=== PATIENT | male | born 1960 | race American Indian/Alaskan Native ===

== ENCOUNTER 2019-01-09 11:23 | Emergency (ER) | payer OTHER ==
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
[2019-01-09] MEDS ORDERED: BOOSTRIX IM ONE (11:39)
[2019-01-09] MEDS ORDERED: IBUPROFEN PO ONE (12:30)
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
[2019-01-09] MEDS ORDERED: CATAPRES PO ONE (13:27)
[2019-01-09] MEDS ORDERED: PERCOCET 5/325 PO ONE (13:29)
[2019-01-09 15:10] VITALS: BP 147/84
== END 2019-01-09 15:11 | disposition home or self-care (01) ==
LOC: ED 11:23
DX: M25.552 Pain in left hip (principal); M79.651 Pain in right thigh; M79.652 Pain in left thigh; I10 Essential (primary) hypertension; Z79.899 Other long term (current) drug therapy; V89.2XXA Person injured in unspecified motor-vehicle accident, traffic, initial encounter; Y93.89 Activity, other specified; Y92.488 Other paved roadways as the place of occurrence of the external cause; Y99.2 Volunteer activity
CPT/HCPCS: 90471; 90715

== ENCOUNTER 2019-06-09 10:41 | Emergency (ER) | payer SELFPAY ==
[2019-06-09] MEDS ORDERED: cloNIDine 0.2 MG TAB PO ONE (11:28)
--- NOTE | 2019-06-09 11:28 | Event Note ---
ED Screening Note Date of service: 06/09/19 Time: 11:25 ED Screening Note: 58 y o male with noPMH presents with dizziness x 2 days states took his BP and was elevated mild chest pain radiating to arm This initial assessment/diagnostic orders/clinical plan/treatment(s) is/are subject to change based on patients health status, clinical progression and re- assessment by fellow clinical providers in the ED. Further treatment and workup at subsequent clinical providers discretion. Patient/guardian urged not to elope from the ED as their condition may be serious if not clinically assessed and managed. Initial orders include: cxr, ekg, cmp,cbc, trop clonidine in triage
[2019-06-09] MEDS ORDERED: cloNIDine 0.2 MG TAB ONE (11:30)
[2019-06-09 11:44] LABS: Basophils # (Auto) 0.1 K/mm3 (0.0-0.1); Basophils % (Auto) 1.2 % (0.0-1.8); Eosinophils # (Auto) 0.1 K/mm3 (0.0-0.4); Eosinophils % (Auto) 0.9 % (0.0-4.3); Hematocrit 49.5 % (35.5-45.6); Hemoglobin 16.2 gm/dl (11.8-15.2); Lymphocytes # (Auto) 2.2 K/mm3 (1.2-5.4); Lymphocytes % (Auto) 36.3 % (13.4-35.0); Mean Corpuscular HGB Conc 33 % (32-34); Mean Corpuscular Volume 84 fl (84-94); Monocytes # (Auto) 0.6 K/mm3 (0.0-0.8); Monocytes % (Auto) 10.9 % (0.0-7.3); Red Blood Count 5.88 M/mm3 (3.65-5.03); Red Cell Distribution Width 15.1 % (13.2-15.2)
[2019-06-09 11:45] LABS: Platelet Count 129 K/mm3 (140-440)
[2019-06-09 12:08] LABS: Creatine Kinase MB 2.2 ng/mL (0.0-4.0)
[2019-06-09 12:12] LABS: Alanine Aminotransferase 45 units/L (7-56); Albumin 4.3 g/dL (3.9-5); BUN/Creatinine Ratio 7; Blood Urea Nitrogen 9 mg/dL (9-20); Hemolysis Index 5
--- NOTE | 2019-06-09 12:38 | XRay Report ---
CHEST 1 VIEW INDICATION: Lightheadedness/Dizziness. COMPARISON: FINDINGS: SUPPORT DEVICES: None. HEART / MEDIASTINUM: No significant abnormality. LUNGS / PLEURA: No significant pulmonary or pleural abnormality. No pneumothorax. ADDITIONAL FINDINGS: IMPRESSION: 1. No acute cardiopulmonary disease Signer Name: Dayo Bustamante MD Signed: 06/09/2019 12:34 PM Workstation Name: [id number]
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
--- NOTE | 2019-06-09 15:03 | Cat Scan Report ---
CT head/brain wo con INDICATION / CLINICAL INFORMATION: 58 years Male; left arm numbness, HBP. TECHNIQUE: Routine CT head without contrast. All CT scans at this location are performed using CT dos e reduction for ALARA by means of automated exposure control. COMPARISON: None. FINDINGS: BRAIN / INTRACRANIAL CONTENTS: No acute hemorrhage, mass effect, midline shift, hydrocephalus, or acu te, large territorial infarct. No chronic infarct or atrophy appreciated. No significant white matter abnormality. CRANIOCERVICAL JUNCTION: No significant abnormality. ORBITS: No significant abnormality of visualized orbits. SINUSES / MASTOIDS: No significant abnormality the visualized paranasal sinuses or mastoid air cells. ADDITIONAL FINDINGS: Atherosclerotic disease is seen in the anterior circulation. IMPRESSION: 1. No focal mass, hemorrhage, hydrocephalus, or acute, large territorial infarct. Signer Name: Lui Swift MD, III Signed: 06/09/2019 2:59 PM Workstation Name: [id number]
[2019-06-09] MEDS ORDERED: ASPIRIN 325 MG TAB PO ONE (16:07)
[2019-06-09 16:33] VITALS: BP 156/78
== END 2019-06-09 16:26 | disposition home or self-care (01) ==
LOC: ED 10:41
DX: R42 Dizziness and giddiness (principal); I10 Essential (primary) hypertension; Z79.899 Other long term (current) drug therapy
CPT/HCPCS: 36415; 70450; 71045; 80053; 82550; 82553; 83880; 84484; 85025; 93005; 93010